=== PATIENT | female | born 1945 | race Caucasian/White ===

== ENCOUNTER → 2019-06-21 | Outpatient (CLI) | payer MEDICARE, BC ==
[~2019-06-21] MED LIST: ANASTROZOLE PO; GLIP5TAB13 PO; MESA400T9 PO
== END | disposition home or self-care (01) ==
LOC: RAD 15:05
PROVIDERS: ATTEND Specialist
DX: Z01.818 Encounter for other preprocedural examination (principal)
CPT/HCPCS: 71045